=== PATIENT | male | born 1985 | race African-American/Black ===

== ENCOUNTER 2017-06-26 19:03 | Emergency (ER) | payer MEDICAID, OTHER ==
[2017-06-26 19:10] VITALS: BP 137/70; PULSE 83; RESP 17; TEMP 98.7
--- NOTE | 2017-06-26 19:27 | ED ---
General Adult HPI - General Chief complaint: Skin/Abscess/Foreign Body Stated complaint: bump on face Time Seen by Provider: 06/26/17 19:10 Source: patient, RN notes reviewed Mode of arrival: ambulatory Limitations: no limitations - History of Present Illness Initial comments: Patient 31-year-old male who presents emergency room today with chief complaint of increased dental pain to the left upper gumline. He does admit to a few fractured teeth and serial losses dental insurance has been unable to follow- up. He denies any drainage or discharge. Patient states pains increased over the last few days. Patient also is that he's had a mass to the left lower [place]. He states started approximately a year ago. States it has increased in size. He states is nontender. He states she's never seen anybody for this before. Patient denies any recent fever, chills, shortness of breath, chest pain , back pain, abdominal pain, nausea or vomiting, numbness or tingling, dysuria or hematuria, constipation or diarrhea, headaches or visual changes, or any other complaints. - Related Data Previous Rx's Medication Instructions Recorded Paliperidone [Invega] 3 mg PO DAILY #7 tab.er.24 06/06/15 clonazePAM [KlonoPIN] 2 mg PO HS #7 dose 06/06/15 Ibuprofen [Motrin] 600 mg PO Q6HR PRN #20 tab 06/14/15 Penicillin V Potassium [Pen Vee K] 500 mg PO QID #40 tablet 06/26/17 Allergies Allergy/AdvReac Type Severity Reaction Status Date / Time No Known Allergies Allergy Verified 06/26/17 19:10 Review of Systems ROS Statement: Those systems with pertinent positive or pertinent negative responses have been documented in the HPI. ROS Other: All systems not noted in ROS Statement are negative. Past Medical History Past Medical History: No Reported History History of Any Multi-Drug Resistant Organisms: MRSA Date of last positivie culture/infection: 2014 MDRO Source:: KNEE LEFT Past Surgical History: No Surgical Hx Reported Past Psychological History: Schizophrenia Smoking Status: Current every day smoker Past Alcohol Use History: Occasional Past Drug Use History: None Reported General Exam - General Exam Comments Initial Comments: General: The patient is awake and alert, in no distress, and does not appear acutely ill. Eye: Pupils are equal, round and reactive to light, extra-ocular movements are intact. No nystagmus. There is normal conjunctiva bilaterally. No signs of icterus. Ears, nose, mouth and throat: There are moist mucous membranes and no oral lesions. does have some poor dental hygiene with a few fractured teeth #1415. Locally tender the gallbladder #14 with no abscess to drain at this time. Uvula is midline. Patient swallows without difficulty. Neck: The neck is supple, there is no tenderness or JVD. Cardiovascular: There is a regular rate and rhythm. No murmur, rub or gallop is appreciated. Respiratory: Lungs are clear to auscultation, respirations are non-labored, breath sounds are equal. No wheezes, stridor, rales, or rhonchi. Musculoskeletal: Normal ROM, no tenderness. Strength 5/5. Sensation intact. Pulses equal bilaterally 2+. Neurological: A&O x 3. CN II-XII intact, There are no obvious motor or sensory deficits. Coordination appears grossly intact. Speech is normal. Skin: patient does have a fluctuant mass to the left lower jawline. There is nontender. There is no redness or erythema or sign of infection. Measures approximately 1.5 cm. Psychiatric: Cooperative, appropriate mood & affect, normal judgment. Limitations: no limitations Course Vital Signs 06/26/17 19:04 Temperature 98.7 F Pulse Rate 83 Respiratory 17 Rate Blood Pressure 137/70 O2 Sat by Pulse 98 Oximetry Medical Decision Making - Medical Decision Making Patient is advised to follow-up with both dentist possibly oral surgeon is needed for his teeth to be extracted. We started on antibiotics to cover for a dental abscess. Patient does have a fluctuant mass to the left side of the lower chin which is been there started approximately a year ago increased in size. It is not consistent with abscess. Was discussed with the patient about further follow-up in the importance. Advised patient to see ENT. Advised to return for any other concerns. Disposition Clinical Impression: Dental abscess, Mass of chin Disposition: HOME SELF-CARE Condition: Good Instructions: Dental Abscess (ED) Additional Instructions: Please use medication as discussed. Please follow-up with dentist and ENT over the next 2 days. Please return to emergency room if the symptoms increase or worsen or for any other concerns. Please follow-up with dentist and use antibiotic and pain medication as discussed. [facility] [address] [place] [address] [phone]) (existing clients only) For new clients: [phone] [employer] Pay $50 for x-rays and the rest discovered [phone] Prescriptions: Penicillin V Potassium [Pen Vee K] 500 mg PO QID #40 tablet Referrals: None,Stated [Primary Care Provider] - 1-2 days Juan Toro MD [STAFF PHYSICIAN] - 1-2 days Time of Disposition: 19:27
== END 2017-06-26 19:33 | disposition home or self-care (01) ==
LOC: EC 19:03
DX: K04.7 Periapical abscess without sinus (principal); R22.0 Localized swelling, mass and lump, head; F17.200 Nicotine dependence, unspecified, uncomplicated; Z86.14 Personal history of Methicillin resistant Staphylococcus aureus infection
CPT/HCPCS: 99282

== ENCOUNTER 2023-05-01 14:43 | Emergency (ER) | payer OTHER ==
[2023-05-01 15:16] VITALS: RESP 18
--- NOTE | 2023-05-01 15:42 | XR ---
EXAMINATION TYPE: XR finger LT DATE OF EXAM: 05/01/2023 3:38 PM INDICATION: Patient age:Male; 37 years old; Reason for study: pain; PHH. COMPARISON: None TECHNIQUE: Frontal, lateral and oblique views of the middle finger of the left hand were obtained. FINDINGS: Normal alignment of the visualized joints. No acute osseous pathology is identified. Soft tissue defect with mild soft tissue swelling of the tip of the third digit. No radiopaque foreign bod y. IMPRESSION: 1. No acute osseous pathology. 2. Soft laceration with mild soft tissue swelling of the tip of the third digit. No radiopaque forei gn body.
[2023-05-01] MEDS ORDERED: ACETAMINOPHEN TAB 325 MG TAB PO STA (16:31)
[2023-05-01] MEDS ORDERED: LIDOCAINE 1% INJ 10MG/ML (20 ML MDV) SQ ONE (16:41)
[2023-05-01] MEDS ORDERED: BACITRACIN OINT 1 EACH PACKET TOPICAL ONE (17:10)
--- NOTE | 2023-05-01 17:17 | ED ---
Upper Extremity HPI - General Chief Complaint: Extremity Injury, Upper Stated Complaint: left hand finger pain Time Seen by Provider: 05/01/23 15:09 Source: patient, family, RN notes reviewed Mode of arrival: ambulatory Limitations: no limitations - History of Present Illness Initial Comments: Patient is a 37-year-old male presented ER with chief complaint of a finger pain. Patient was seen in [place] emergency room about 3 weeks ago for a crush injury to his left middle finger. Patient received 7 stitches and a tetanus vaccination in the ER. Patient states that about 3 weeks in his stitches have not been removed. Patient states he's been having increased pain and has noticed his finger appears swollen. Patient denies any fevers, chills, night sweats, any other complaints at this time. - Related Data Previous Rx's Medication Instructions Recorded Paliperidone [Invega] 3 mg PO DAILY #7 tab.er.24 06/06/15 clonazePAM [KlonoPIN] 2 mg PO HS #7 dose 06/06/15 Ibuprofen [Motrin] 600 mg PO Q6HR PRN #20 tab 06/14/15 Penicillin V Potassium [Pen Vee K] 500 mg PO QID #40 tablet 06/26/17 Cephalexin [Keflex] 500 mg PO Q6HR #40 cap 05/01/23 Allergies Allergy/AdvReac Type Severity Reaction Status Date / Time No Known Allergies Allergy Verified 05/01/23 14:49 Review of Systems ROS Statement: Those systems with pertinent positive or pertinent negative responses have been documented in the HPI. ROS Other: All systems not noted in ROS Statement are negative. Past Medical History Past Medical History: No Reported History History of Any Multi-Drug Resistant Organisms: MRSA Date of last positivie culture/infection: 2014 MDRO Source:: KNEE LEFT Past Surgical History: No Surgical Hx Reported Past Psychological History: Schizophrenia Smoking Status: Current every day smoker Past Alcohol Use History: Occasional Past Drug Use History: None Reported General Exam Limitations: no limitations Neurological exam: Present: alert, oriented X3, CN II-XII intact Psychiatric exam: Present: normal affect, normal mood Skin exam: Present: other (Left third digit edema noted past the DIP joint. stitches and steri strips present. Limited ROM due to swelling. purlent material noted under finger nail.) Course Vital Signs 05/01/23 14:50 Temperature 98.6 F Pulse Rate 70 Respiratory 18 Rate Blood Pressure 155/116 O2 Sat by Pulse 99 Oximetry Procedures - Nerve Block Consent Obtained: verbal consent Local Anesthetic Used: Lidocaine 1% Amount of anesthesia used: 5 Side: left Nerve Blocks: digital (3rd finger) Procedure Successful: Yes Complications: none Patient Tolerated Procedure: well Additional Comments: A digital block of the left third finger was done. Removal of glued on Steri- Strips and stitches was successful. Medical Decision Making - Medical Decision Making Was pt. sent in by a medical professional or institution (, BALWINDER, VOLTAGE INSPECTOR, urgent care, hospital, or half-way...) When possible be specific @ -No Did you speak to anyone other than the patient for history (EMS, parent, family, police, friend...)? What history was obtained from this source @ -Family Did you review nursing and triage notes (agree or disagree)? Why? @ -I reviewed and agree with nursing and triage notes Were old charts reviewed (outside hosp., previous admission, EMS record, old EKG, old radiological studies, urgent care reports/EKG's, half-way records)? Report findings @ -No old charts were reviewed Differential Diagnosis (chest pain, altered mental status, abdominal pain women, abdominal pain men, vaginal bleeding, weakness, fever, dyspnea, syncope, headache, dizziness, GI bleed, back pain, seizure, CVA, palpatations, mental health, musculoskeletal)? @ -Fracture, cellulitis, foreign body, osteomyelitis EKG interpreted by me (3pts min.). @ -None X-rays interpreted by me (1pt min.). @ -X-ray of the left third finger shows no acute osseous abnormalities. CT interpreted by me (1pt min.). @ -None done U/S interpreted by me (1pt. min.). @ -None done What testing was considered but not performed or refused? (CT, X-rays, U/S, labs)? Why? @ -None What meds were considered but not given or refused? Why? @ -None Did you discuss the management of the patient with other professionals (professionals i.e. BALWINDER Roberts, VOLTAGE INSPECTOR, lab, RT, psych nurse, oncology social worker, lead mason tender, teacher, surface to air weapons officer, assistant case manager)? Give summary @ -No Was smoking cessation discussed for >3mins.? @ -No Was critical care preformed (if so, how long)? @ -No Were there social determinants of health that impacted care today? How? (Homele ssness, low income, unemployed, alcoholism, drug addiction, transportation, low edu. Level, literacy, decrease access to med. care, fpc, rehab)? @ -No Was there de-escalation of care discussed even if they declined (Discuss DNR or withdrawal of care, Hospice)? DNR status @ -No What co-morbidities impacted this encounter? (DM, HTN, Smoking, COPD, CAD, Cancer, CVA, ARF, Chemo, Hep., AIDS, mental health diagnosis, sleep apnea, morbid obesity)? @ -None Was patient admitted / discharged? Hospital course, mention meds given and route, prescriptions, significant lab abnormalities, going to OR and other pertinent info. @ -Discharge. X-ray of the left third finger shows no acute osseous abnormalities. Patient's left third finger was digitally blocked using lidocaine. Steri-Strips and stitches were removed. Cultures of purulent drainage were obtained. Patient tolerated procedure well. Bacitracin and Vaseline covered gauze was placed over the finger and wrapped with gauze pad. Advised patient to keep finger dry and clean. Patient will be discharged with a prescription of Keflex. Patient advised on return parameters. Patient should follow-up with PCP. Patient expressed understanding and agreement with plan. Undiagnosed new problem with uncertain prognosis? @ -No Drug Therapy requiring intensive monitoring for toxicity (Heparin, Nitro, Insulin, Cardizem)? @ -No Were any procedures done? @ -Yes Diagnosis/symptom? @ -Wound of left third finger Acute, or Chronic, or Acute on Chronic? @ -Acute Uncomplicated (without systemic symptoms) or Complicated (systemic symptoms)? @ -Uncomplicated Side effects of treatment? @ -No Exacerbation, Progression, or Severe Exacerbation? @ -No Poses a threat to life or bodily function? How? (Chest pain, [place], NH, pneumonia, PE, COPD, DKA, ARF, appy, cholecystitis, CVA, Diverticulitis, Homicidal, Suicidal, threat to staff... and all critical care pts) @ -No - Radiology Data Radiology results: report reviewed, image reviewed Disposition Clinical Impression: Wound infection Disposition: HOME SELF-CARE Condition: Stable Additional Instructions: Please return to the Emergency Department if symptoms worsen or any other concerns. Please follow-up with your PCP. Please finish full course of antibiotics and return if any worsening symptoms appear. Prescriptions: Cephalexin [Keflex] 500 mg PO Q6HR #40 cap Is patient prescribed a controlled substance at d/c from ED?: No Referrals: Colt Barclay DO [Primary Care Provider] - 1-2 days Time of Disposition: 17:27
[2023-05-01 17:56] VITALS: BP 140/78; PULSE 72; TEMP 98.4
== END 2023-05-01 17:51 | disposition home or self-care (01) ==
LOC: EC 14:43
DX: S61.203A Unspecified open wound of left middle finger without damage to nail, initial encounter (principal); F17.200 Nicotine dependence, unspecified, uncomplicated; W23.0XXA Caught, crushed, jammed, or pinched between moving objects, initial encounter
CPT/HCPCS: 87070; 87205; 73140; 99283; J2001